=== PATIENT | female | born 1990 | race Caucasian/White ===

== ENCOUNTER 2017-02-12 14:04 | Emergency (ER) | payer MEDICAID ==
[~2017-02-12] VITALS: Ht 162.6 cm; Wt 60.0 kg
[~2017-02-12 14:04] MED LIST: MACR100C PO
[2017-02-12 14:09] VITALS: BP 98/64; PULSE 102; RESP 16; TEMP 98.2; O2SAT 98
[2017-02-12] MEDS ORDERED: LIDOCAINE HCL 1% 50 ML VIAL INFIL ONE (14:15)
--- NOTE | 2017-02-12 14:20 | PD ---
HPI Chief Complaint: Skin Problem Time Seen by Provider: 14:12 Travel History International Travel<30 days: No Contact w/Intl Traveler<30days: No Traveled to known affect area: No History of Present Illness HPI 26-year-old female presents to the emergency room for evaluation of a red, painful lesion to her left medial thigh that started 3 days ago. Patient states it started off as a small pimple and has grown larger very day. She denies fever, chills, nausea, and vomiting. Denies drainage. No chronic medical conditions or daily medications. PFSH Past Medical History Diminished Hearing: No Immunizations Current: Yes ?: Not : 4 Para: 2 Miscarriage: 1 : 1 Social History Alcohol Use: Yes (DAILY) Tobacco Use: No Substance Use: No Allergies-Medications (Allergen,Severity, Reaction): Coded Allergies: No Known Allergies (Verified , 02/12/17) Reported Meds & Prescriptions Reported Meds & Active Scripts Active Macrobid (Nitrofurantoin Macrocrystals) 100 Mg Cap 100 Mg PO BID Review of Systems Except as stated in HPI: all other systems reviewed are Neg Physical Exam Narrative GENERAL: Well-nourished, well-developed female in no acute distress. Afebrile. Ambulatory. SKIN: Focused skin assessment warm/dry. There is an indurated area in the left medial thigh which measures about 2 cm in diameter. It is fluctuant but there is no pointing or drainage. There is a zone of inflammation around it but no lymphangitis. HEAD: Normocephalic. EYES: No scleral icterus. No injection or drainage. NECK: Supple, trachea midline. No JVD or lymphadenopathy. CARDIOVASCULAR: Regular rate and rhythm without murmurs, gallops, or rubs. RESPIRATORY: Breath sounds equal bilaterally. No accessory muscle use. MUSCULOSKELETAL: No cyanosis, or edema. Data Data Last Documented VS Vital Signs Date Time Temp Pulse Resp B/P (MAP) Pulse Ox O2 Delivery O2 Flow Rate FiO2 02/12/17 14:09 98.2 102 16 98/64 (75) 98 Orders Orders Lidocaine 1% Inj (50 Ml) (Xylocaine 1% I (02/12/17 14:15) MDM Medical Decision Making Medical Screen Exam Complete: Yes Emergency Medical Condition: Yes Medical Record Reviewed: Yes Differential Diagnosis Folliculitis, abscess, cellulitis Narrative Course 26-year-old female presents to the emergency room for evaluation of a lesion to the left medial thigh that started 3 days ago. Physical exam reveals a 2 cm abscess with surrounding erythema but without lymphangitis. Abscess was drained , see procedure for details. Patient discharged with Bactrim and told to follow -up with her primary care physician or return for worsening symptoms. She understands and agrees to plan. Procedures Procedure Narrative INCISION AND DRAINAGE OF ABSCESS: The area was prepped and was sterilely draped. A subcutaneous wheal of 1% lidocaine with a total number 2 mL was used to anesthetize the area properly. A number 11 scalpel was used to make a 1 cm incision across the area of the abscess. The abscess was drained, complex loculations were broken down, and irrigated with normal saline. Cultures were obtained. Sterile dressing applied. Diagnosis Primary Impression: Abscess of left thigh Referrals: Primary Care Physician Additional Instructions: Rest and drink plenty of fluids. Take Bactrim as directed, until gone. Follow up with a primary care physician. Return to emergency room for worsening symptoms, as discussed. Med/Other Pt SpecificInfo: Prescription(s) given Disposition: DISCHARGE HOME Condition: Stable Marisol Monroy Feb 12, 2017 14:20
[2017-02-12] MEDS ORDERED: BACT800T5 PO (14:29)
== END 2017-02-12 14:36 | disposition home or self-care (01) ==
LOC: PHEFT 14:04
DX: L02.416 Cutaneous abscess of left lower limb (principal); B95.61 Methicillin susceptible Staphylococcus aureus infection as the cause of diseases classified elsewhere
CPT/HCPCS: 10060; 86403; 87070; 87186; 87205